=== PATIENT | male | born 2000 | race Two or more races ===

== ENCOUNTER → 2022-02-12 | Emergency (ER) | payer OTHER ==
[~2022-02-12] VITALS: Ht 175.3 cm; Wt 108.9 kg
[2022-02-12 01:44] VITALS: BP 154/94
== END | disposition left against medical advice (07) ==
LOC: ER 01:44
DX: H57.12 Ocular pain, left eye (principal); Z53.21 Procedure and treatment not carried out due to patient leaving prior to being seen by health care provider